=== PATIENT | male | born 1980 ===

== ENCOUNTER → 2025-08-08 | Outpatient (CLI) | payer MEDICAID, SELFPAY ==
--- NOTE | 2025-08-08 14:29 | XR_ITS ---
EXAMINATION: Testicular sonography complete TECHNIQUE: Grayscale sonographic images testes, assessment arterial inflow venous outflow Doppler spectral analysis color flow analysis Date and time: August 08, 2025, 1449 hours INDICATIONS: Left testicular pain recurrent beginning 2 years ago. FINDINGS: Right testis 3 3.8 cm epididymis 15 mm Arterial flow to the testicle. No testicular mass Mild right hydrocele Left testis 3.9 cm epididymis 13 mm Arterial flow the testicle. No testicular mass Testicular appendix 5 x 5 mm 2 mm testicular calcification Mild hydrocele IMPRESSION: No testicular torsion or testicular mass Bilateral mild hydroceles Small left testicular calcification
[2025-08-08 16:28] LABS: Alanine Aminotransferase 26 U/L (10-49); Albumin, Serum 4.7 gm/dL (3.5-5.0); Albumin/Globulin Ratio 2.4 (1.2-2.2); Alkaline Phosphatase 73 U/L (46-116); Anion Gap 10 (7-16); Aspartate Amino Transferase 26 U/L (0-34); BUN/Creatinine Ratio 13 Ratio (12-20); Bilirubin,Total 0.9 mg/dL (0.3-1.2); Blood Urea Nitrogen 13 mg/dL (9-23); Calcium 8.9 mg/dL (8.3-10.6); Calcium (Corrected) 8.9 mg/dL (8.5-10.1); Carbon Dioxide 23.8 mMol/L (20.0-31.0); Chloride 107 mMol/L (98-107); Creatinine (Component) 1.0 mg/dL (0.6-1.3); Globulin 2.0 gm/dL (2.3-3.5); Glucose 127 mg/dL (74-106); Osmolality,Calculated 283 (275-295); Potassium 3.9 mMol/L (3.4-5.1); Sodium 141 mMol/L (136-145); Total Protein 6.7 gm/dL (5.7-8.2); eGFR > 60 See Note
== END | disposition home or self-care (01) ==
LOC: CDIM 14:22 → COPL 15:03
PROVIDERS: Visit Provider Radiology Diagnostic Radiology
DX: N43.3 Hydrocele, unspecified (principal); N50.89 Other specified disorders of the male genital organs; Z79.899 Other long term (current) drug therapy
CPT/HCPCS: 36415; 76870; 80053